=== PATIENT | female | born 1955 | race Caucasian/White ===

== ENCOUNTER 2019-10-11 11:26 | Outpatient (CLI) | payer MEDICARE, BC ==
[~2019-10-11] VITALS: Ht 154.9 cm; Wt 72.9 kg
--- NOTE | ~2019-10-11 | HEMODYNAMI ---
PATIENT:MARYANA NORTH MEDICAL RECORD: [id number] : 53 LOCATION:[facility] ADMISSION DATE: 10/11/19 Generatedon:10/11/201913:25 Patient name: MARYANA NORTH Patient #: [id number] SSN: : 1955 Date of study: 10/11/2019 Page: Of Hemodynamic Procedure Report Patient Data Patient Demographics Procedure consent was obtained First Name: MARYANA Gender: Female Last Name: MARY ANNE : 1955 Patient #: [id number] Age: 64 year(s) Race: Unknown Additional ID: [id number] Contact details [address]: [address] [place] [address] State: [place] City: [place] Zip code: [address] Past Medical History Allergies Allergen Reaction Date Comments Reported Other allergy 10/11/2019 PCN, SULFA Admission Admission Data Admission Date: 10/11/2019 Admission Time: 11:26 Arrival Date: 10/11/2019 Arrival Time: 0:00 Height (in.): 60.63 BSA: 1.71 (m2) Height (cm.): 154 BMI: 30.78 (kg/m2) Weight (lbs.): 160.94 Weight (kg.): 73 Lab Results Lab Result Date: 10/11/2019 Lab Result Time: 0:00 CBC Name Units Result Min Max Hemoglobin g/dl 14.4 --(*---)-- 13.5 17.5 Procedure Procedure Types Cath Procedure Diagnostic Procedure LHC LHC w/Coronaries FFR/IVUS FFR Initial Procedure Description Procedure Date Procedure Date: 10/11/2019 Procedure Start Time: 12:48 Procedure Staff Name Function Alonso Monaco RT Monitor Edson Phipps RN Nurse Kenroy Mathews MD Performing Physician Earnestine Ortiz RT Scrub Procedure Data Cath Procedure Fluoroscopy Diagnostic fluoroscopy Total fluoroscopy Time: 8.4 time: 8.4 min min Diagnostic fluoroscopy Total fluoroscopy dose: 832 dose: 832 mGy mGy Contrast Material Contrast Material Type Amount (ml) Isovue 300 61 Entry Location Entry Primary Successful Side Size Upsize Upsize Entry Closure Succes sful Closure Location (Fr) 1 (Fr) 2 (Fr) Remarks Device Remarks Radial Right 6 Fr artery Short Femoral Right 5 Fr 6 Fr Exoseal artery Short Estimated blood loss: 10 ml Diagnostic catheters Device Type Used For End Catheter Placement DIAGNOSTIC [place] 110cm 5 Procedure Fr catheter ([id number]) DIAGNOSTIC JL 3.5 5Fr Procedure catheter ([id number]) MULTIPACK JL 4.0 5Fr Procedure catheter Procedure Medications Medication Administration Route Dosage Oxygen etCO2 Nasal cannula 2 l/min Lidocaine 2% added to field 20 Heparin Flush Bag added to field 2 bags (1000units/500ml NS) 0.9% NaCl I.V. 100 ml/hr Radial Cocktail I.A. 1 syringe (Verapamil 2mg/Nitro 400mcg/Heparin 1500units) Versed I.V. 1 mg Fentanyl I.V. 50 mcg Versed I.V. 1 mg Fentanyl I.V. 50 mcg Heparin Bolus I.V. 2000 units Versed I.V. 1 mg Hemodynamics Rest BSA: 1.71 (m2) HGB: 14.4 (g/dl) O2 Consumption: Estimated: 156.66 (ml/min) O2 Co nsumption indexed: Estimated:91.61 (ml/min/m) Heart Rate: 65 (bpm) Snapshots Pre Cath Intra NCS Post Cath Vital Signs Time Heart Resp SPO2 etCO2 NIBP (mmHg) Rhythm Pain Sedation Rate (ipm) (%) (mmHg) Status Level (bpm) 12:43:21 54 13 100 41.9 164/76(123) NSR 0 (11) 10(A) , No pain 12:47:56 67 18 97 38.1 116/55(79) NSR 0 (11) 10(A) , No pain 13:01:49 68 13 98 41.2 141/68(89) NSR 0 (11) 9(A) , No pain 13:10:34 67 17 99 42.7 118/59(93) NSR 0 (11) 9(A) , No pain 13:15:31 64 18 99 37.4 123/63(80) NSR 0 (11) 10(A) , No pain Medications Time Medication Route Dose Verified Delivered Reason Not es Effectiveness by by 12:31:10 Oxygen etCO2 2 l/min Kenroy Sandhu used for Nasal St Parth Phipps RN procedure cannula 12:32:16 Lidocaine 2% added 20ml Kenroy Jasmine for local to vial [facility] anesthetic field MD BOATENG 12:32:21 Heparin Flush added 2 bags Kenroy Jasmine used for Bag to [facility] procedure (1000units/500ml field MD BOATENG NS) 12:32:30 0.9% NaCl I.V. 100 Kenroy Sandhu Per physician ml/hr St Parth Phipps RN, MD 12:45:44 Versed I.V. 1 mg Kenroy Sandhu for sedation St Parth Phipps RN, MD 12:45:51 Fentanyl I.V. 50 mcg Kenroy Sandhu for sedation St Parth Phipps RN, MD 12:50:37 Radial Cocktail I.A. 1 Kenroy Jasmine for (Verapamil syringe [facility] vasodilation 2mg/Nitro MD BOATENG 400mcg/Heparin 1500units) 12:53:53 Versed I.V. 1 mg Kenroy Sandhu for sedation St Parth Phipps RN, MD 12:53:56 Fentanyl I.V. 50 mcg Kenroy Sandhu for sedation St Parth Phipps RN, MD 13:01:37 Versed I.V. 1 mg Kenroy Sandhu for sedation St Parth Phipps RN, MD 13:05:34 Heparin Bolus I.V. 2000 Kenroy Sandhu for fabian ified units St Parth Phipps RN anticoagulation with dr MD mcclain Procedure Log Time Note 11:38:30 Informed consent obtained and on chart 12:15:24 Edson Phipps RN sent for patient. Start room use. 12:15:47 Procedure Status Elective Heart Cath (OP). 12:15:49 Time tracking: Regular hours (M-F 7:00 - 5:00) 12:15:54 Plan of Care:Hemodynamics will remain stable., Cardiac rhythm will remain stable., Comfort level will be maintained., Respiratory function will remain adequate., Patient/ family verbilizes understanding of procedure., Procedure tolerated without complication., Recovers from procedure without complications.. 12:16:10 H&P Date Dictated: 10/11/2019 New H&P dictated by physician.. 12:16:49 Patient allergic to Other allergyPCN, SULFA 12:19:43 Patient Weight : 160.94 lbs 12:19:50 Patient Height : 60.63 inches 12:20:07 Arrival Date: 10/11/2019 12:00:00 AM 12:22:55 Patient received from Pre/Post Procedure Room to [facility] 2 Alert and oriented. Tansferred to table in Supine position. 12:22:56 Warm blankets applied, and doris hugger turned on for patient comfort. 12:22:58 Correct patient and procedure confirmed by team. 12:23:01 ECG and BP/O2 sat monitors applied to patient. 12:24:42 Is patient on blood thinner?No 12:28:00 Patient diabetic? Yes. 12:28:05 ----Pre-sedation anethsthesia assessment.---- 12:28:08 Previous problem with sedation/anesthesia? No ? 12:28:09 Snore? Yes 12:28:11 Sleep apnea? No 12:28:13 Deviated septum? No 12:28:14 Opens mouth fully? Yes 12:28:15 Sticks out tongue? Yes 12:28:19 Airway obstruction? No ? 12:28:22 Dentures? No ? 12:31:10 Oxygen 2 l/min etCO2 Nasal cannula was administered by Edson Phipps RN; used for procedure; Verbal order read back and verified. 12:32:09 Pre procedure: right dorsailis pedis pulse 2+ Normal; easily identifiable; not easily obliterated 12:32:13 Modified Rubio's test Ulnar < 7 seconds 12:32:16 Lidocaine 2% 20ml vial added to field was administered by Kenroy Mathews MD; for local anesthetic; Verbal order read back and verified. 12:32:16 Patient pain scale 0/10 ?. 12:32:21 Heparin Flush Bag (1000units/500ml NS) 2 bags added to field was administered by Kenroy Mathews MD; used for procedure; Verbal order read back and verified. 12:32:24 IV patent on arrival in left antecubital with 0.9% NaCl at [facility]. 12:32:30 0.9% NaCl 100 ml/hr I.V. was administered by Edson Phipps RN; Per physician; Verbal order read back and verified. 12:32:44 Right Radial & Right Groin area was prepped with chlora-prep and draped in sterile fashion 12:32:46 Alarms reviewed by R. N. 12:32:47 Sharps counted by scrub and verified by R.N. 12:32:53 Use device set Radial Dx or PCI 12:32:55 ACIST Syringe (34998) opened to sterile field. 12:32:56 Medline Cath Pack ([id number]) opened to sterile field. 12:32:57 Bag Decanter (2002S) opened to sterile field. 12:32:58 ACIST Hand Control (90232) opened to sterile field. 12:32:59 ACIST Manifold (96893) opened to sterile field. 12:33:00 Tegaderm 4 x 4 (1626W) opened to sterile field. 12:33:01 MBrace Wrist Support (086982267) opened to sterile field. 12:33:13 SHEATH 6FR RAIN (0626249) opened to sterile field. 12:35:56 Baseline sample Acquired. 12:36:07 Rhythm: sinus rhythm 12:36:15 Pre-procedure instructions explained to patient. 12:36:22 Pre-op teaching completed and patient verbalized understanding. 12:36:27 Family in patients room. 12:36:34 Is the patient allergic to Iodine/contrast media? No. 12:39:04 Lab Result : Hemoglobin 14.4 g/dl 12:39:41 Lab results completed and on chart. 12:43:01 Physician arrived 12:43:02 --------ALL STOP TIME OUT------ 12:43:03 Final Timeout: patient, procedure, and site verified with staff and physician. All members of the team are in agreement. 12:43:06 Right Radial & Right Groin site verified by team. 12:43:11 Fire Safety Assessment: A--An alcohol-based skin anteseptic being used preoperatively., C--Open oxygen or nitrous oxide is being used., D--An ESU, laser, or fiber-optic light is being used. 12:43:16 Physical assessment completed. ASA score P 2 - A patient with mild systemic disease as per Kenroy Mathews MD. 12:43:23 Sedation plan: IV Moderate Sedation Medication:Versed, Fentanyl 12:45:44 Versed 1 mg I.V. was administered by Edson Phipps RN; for sedation; Verbal order read back and verified. 12:45:51 Fentanyl 50 mcg I.V. was administered by Buffie Phipps RN; for sedation; Verbal order read back and verified. 12:47:47 Procedure started, trouble with the [place] 12:48:25 Local anesthetic to right radial artery with Lidocaine 2% by Kenroy Mathews MD.INITIAL ACCESS ONLY 12:48:40 A 6 Fr Short sheath was inserted into the Right Radial artery 12:49:47 A DIAGNOSTIC [place] 110cm 5 Fr catheter ([id number]) was advanced over the wire and used for Procedure. 12:50:37 Radial Cocktail (Verapamil 2mg/Nitro 400mcg/Heparin 1500units) 1 syringe I.A. was administered by Kenroy Mathews MD; for vasodilation; Verbal order read back and verified. 12:51:05 LV gram done using CHAMBERS 12:51:11 LV hemodynamics recorded. 12:51:16 EF : 55 % 12:51:22 RCA angiography performed. 12:52:59 1152 HR 68, 118/62, 96%, etCO 15, RR 16, arousal with verbal , NSR 12:53:20 Catheter removed. 12:53:29 A DIAGNOSTIC JL 3.5 5Fr catheter ([id number]) was advanced over the wire and used for Procedure. 12:53:53 Versed 1 mg I.V. was administered by Edson Phipps RN; for sedation; Verbal order read back and verified. 12:53:56 Fentanyl 50 mcg I.V. was administered by Edson Phipps RN; for sedation; Verbal order read back and verified. 12:55:01 Catheter removed. 12:55:25 GUIDE 6FR XBLAD 3.5 catheter ([id number]) opened to sterile field. 12:57:43 1257 HR 67, 125/75, 98%, RR16, etCO2 21, arousal with verbal , NSR 12:59:15 Catheter removed. 12:59:47 Unable to access LCA, preparing groin 12:59:51 Use device set Femoral Dx 13:00:01 SHEATH 5FR [place] (AQV683) opened to sterile field. 13:00:47 Local anesthetic to right femoral artery with Lidocaine 2% by Kenroy Mathews MD.ADDITIONAL ACCESS 13:01:01 A 5 Fr sheath was inserted into the Right Femoral artery 13:01:12 DIAGNOSTIC Multipack 5Fr catheter set (IU3941) opened to sterile field. 13:01:24 A MULTIPACK JL 4.0 5Fr catheter was advanced over the wire and used for Procedure. 13:01:37 Versed 1 mg I.V. was administered by Edson Phipps RN; for sedation; Verbal order read back and verified. 13:02:09 LCA angiography performed. 13:04:17 SHEATH 6FR Bay[place] (RLQ755) opened to sterile field. 13:04:36 Sheath upsized to a 6 Fr Short. 13:05:04 [place] Verrata Plus pressure wire (00147T) opened to sterile field. 13:05:27 INFLATOR Merit BasixCompak (BK6888) opened to sterile field. 13:05:28 EMERALD Guide Wire (737-068) opened to sterile field. 13:05:34 Heparin Bolus 2000 units I.V. was administered by Edson Phipps RN; for anticoagulation; verified with dr mcclain Verbal order read back and verified. 13:05:37 1305- HR 67, 112/60, RR14, etCO2 41, NSR, arousal on verbal. 13:06:35 [place]iggott wire advanced. 13:10:21 Wire advanced across lesion. 13:10:32 FFR/IFR wire advanced. 13:10:55 dCirc lesion measured at .96 with IFR 13:12:40 EXOSEAL 6Fr (EX600) opened to sterile field. 13:13:11 Sheath removed intact; hemostasis achieved with Exoseal to the Right Femoral artery. 13:13:58 ZEPHYR REGULAR TR BAND (364293) opened to sterile field. 13:15:14 Procedure ended.(Physican Out) 13:15:33 Fluoroscopy time 08.40 minutes. 13:15:42 Fluoroscopy dose: 832 mGy 13:15:42 Flurop Dose total: 832 13:15:48 Dose Area Product 77.8 mGy/cm. 13:15:59 Contrast amount:Isovue 300 61ml. 13:16:06 Sharps counted by scrub and verified by R.N. 13:16:28 ACT drawn and resulted at 195 seconds. (normal therapeutic range 180-240 seconds). 13:16:43 Insertion/operative site no bleeding no hematoma. 13:16:49 Post-op/insertion site Right Femoral artery dressed using a 4 x 4 and Tegaderm. 13:16:55 Post right femoral artery:stable 13:17:59 [place] band inflated with 12cc of air. 13:18:16 Post Procedure Pulses reassessed and unchanged 13:18:30 Post-procedure physical assessment completed. ASA score P 2 - A patient with mild systemic disease as per Kenroy Mathews MD. 13:18:37 Post procedure rhythm: sinus rhythm 13:18:42 Estimated blood loss: 10 ml 13:18:45 Patient needs reinforcement of post procedure teaching. 13:19:53 Procedure type changed to Cath procedure, Diagnostic procedure, LHC, LHC w/Coronaries, FFR/IVUS, FFR Initial 13:20:42 Procedure and supply charges have been captured, reviewed, submitted and are correct. 13:20:52 LHC Findings: mild to moderate CAD (<70%) 13:20:58 Operative report dictated upon procedure completion. 13:21:04 See physician's report for complete and final results. 13:22:04 Report given to Pre/Post Procedure Room. 13:22:08 Patient transfered to Pre/Post Procedure Room with Stretcher. 13:22:26 End room use (Document Last) Device Usage Item Name Manufacture Quantity Catalog Hospital Part Current Mini mal Lot# / Number Charge Number Stock Stock Serial# Code ACIST Acist 1 38640 173170 625589 684939 20 Syringe Medical (65894) Systems Inc Medline Medline 1 [id number] 839568 70658 481035 5 Cath Pack ([id number]) Bag Microtek 1 2001S 136181 77927 933134 5 Decanter Medical Inc. () ACIST Hand Acist 1 48002 092442 644772 114285 5 Control Medical (34080) Systems Inc ACIST Acist 1 00928 365069 368325 748275 5 Manifold Medical (29954) Systems Inc Tegaderm 4 3M 1 1626W 364843 658652 449203 5 x 4 (1626W) MBrace Advanced 1 140-0250-00 307645 83156 891332 5 Wrist Vascular Support Dynamics (099173901) SHEATH 6FR Cardinal 1 8733916 377927 4605826 788116 5 [facility] (8070790) DIAGNOSTIC Terumo 1 40-2431 882134 966554 119546 5 [place] 110cm 5 Fr catheter (923325) DIAGNOSTIC Cardinal 1 982765N 387245 300606 528590 5 JL 3.5 5Fr Health catheter (603161D) GUIDE 6FR Cardinal 1 [id number] 258064 183219 189944 10 XBLAD 3.5 Health catheter (29374540) SHEATH 5FR Terumo 1 KPF269 261942 912383 820177 5 Bayard (DZN323) DIAGNOSTIC Cardinal 1 DW3919 478671 39646 780656 30 Multipack Health 5Fr catheter set (OP8328) MULTIPACK Cardinal 1 544591 5 JL 4.0 5Fr Health catheter SHEATH 6FR Terumo 1 QEP951 804892 239099 618577 40 Bayard (EOO455) Piggott Piggott 1 79699N 617372 730128462 937683 5 Verrata Plus pressure wire (72417Z) INFLATOR Merit 1 OD7878 408121 945543 561029 15 [facility] Medical BasixCompak (QM2164) EMERALD Cardinal 1 502-455 129433 650263 573386 5 Guide Wire Health (502455) EXOSEAL 6Fr Cardinal 1 EX600 441361 705374 742008 10 (EX600) Health ZEPHYR Cardinal 1 255545 522903 5453322 156320 5 REGULAR TR Health BAND (712059) Signature Audit [place] Stage Time Signature Unsigned Intra-Procedure 10/11/2019 Alonso Monaco RT(R) 12:44:59 PM RT(R) (CV) (CV) 10/11/2019 12:46:14 PM Intra-Procedure 10/11/2019 Alonso Monaco 1:23:48 PM RT(R) (CV) Intra-Procedure 10/11/2019 Edson Phipps RN 1:24:23 PM Intra-Procedure 10/11/2019 Kenroy Luu 1:25:00 PM Parth BOATENG Signatures Monitor : Alonso Monaco RT Signature : Date : Time : Nurse : Edson Phipps RN Signature : Date : Time : Performing Physician : Signature : Kenroy Mathews MD Date : Time : [address] [place] [address]
[2019-10-11] MEDS ORDERED: PAROXETINE HCL10 MG PO (11:48)
[2019-10-11] MEDS ORDERED: LISINOPRIL20 MG PO (11:48)
[2019-10-11] MEDS ORDERED: ZOCOR10 MG PO (11:48)
[2019-10-11] MEDS ORDERED: GLUCOPHAGE500 MG PO (11:48)
[2019-10-11] MEDS ORDERED: OMEPRAZOLE20 M1 PO (11:55)
[2019-10-11 12:05] VITALS: BP 159/82; Ht 154.9 cm; Wt 72.9 kg
[2019-10-11 12:23] LABS: BASOPHILS 0.1 % (0-2); EOSINOPHILS 2.1 % (0-7); HEMATOCRIT 42.6 % (36.0-48.0); HEMOGLOBIN 14.4 g/dL (12-16); IMMATURE GRANULOCYTES 0.1 % (0-5); LYMPHOCYTES 37.2 % (15-50); MCH 31.9 pg (26.0-34.0); MCHC 33.8 g/dL (31.0-37.0); MCV 94.5 fL (80.0-100.0); MONOCYTES 3.9 % (2-11); NEUTROPHILS 56.6 % (40-80); PLATELET COUNT 207 10x3/uL (130-400); RBC 4.51 10x6/uL (4.00-5.40); RDW 12.8 % (11.5-14.5); WBC 6.7 10x3/uL (4.8-10.8)
[2019-10-11 12:41] LABS: ANION GAP 10.8 mmol/L (8-16); CALCIUM 8.9 mg/dL (8.5-10.1); CARBON DIOXIDE 29.3 mmol/L (21.0-32.0); CREATININE - SERUM 1.1 mg/dL (0.6-1.3); LDL-HDL RATIO 2.8 ratio (1.5-3.5); POTASSIUM - SERUM 4.1 mmol/L (3.5-5.1)
--- NOTE | 2019-10-11 13:25 | NUR ---
PT RECEIVED VIA STRETCHER FROM SHEARER SCREEN MEASURER AND TRIMMER FOR RECOVERY. PT DROWSY BUT VERBALLY AROUSABLE. PT DENIES PAIN OR DISCOMFORT. IV PATENT INFUSING VIA ORDERS TO L ARM. PT PLACED ON CARDIAC MONITORS AND O2 VIA NC AT 2L. HR NSR RATE 62, BP 123/66, RR 11, SAT 98. ZYPHER BAND AND IMMOBILIZER TO R ARM/WRIST, DRESSING W SMALL AMT OF BLOOD, NO ACTIVE BLEEDING NOTED. NO S/S HEMATOMA. ARM PINK AND WARM. R GROIN W 6FR EXOCELE, DRESSING CDI NO S/S HEMATOMA. LEG PINK AND WARM, PEDAL PULSES PALPABLE. PT INSTRUCTED TO KEEP HEAD ON PILLOW AND LEG STRAIGHT SHE VERBALIZED UNDERSTANDING. CALL LIGHT IN REACH, AT BS
--- NOTE | 2019-10-11 13:45 | NUR ---
PT RESTING W EYES CLOSED. ZBAND AND IMMOBILIZER IN PLACE, NO BLEEDING OR S/S HEMATOMA. R GROIN SOFT, DRESSING REMAINS CDI NO S/S HEMATOMA NOTED. VSS. CALL LIGHT IN REACH
--- NOTE | 2019-10-11 14:20 | NUR ---
4CC AIR REMOVED FROM Z BAND, NO BLEEDING OR S/S HEMATOMA NOTED. R GROIN SOFT, DRESSING REMAINS CDI NO S/S HEMATOMA. HOB ELEVATED SLIGHTLY, SANDWICH AND DRINK SERVED. VSS. CALL LIGHT IN REACH
--- NOTE | 2019-10-11 14:50 | NUR ---
PT C/O HEADACHE, DR FLETCHER NOTIFIED, ORDERS RECEIVED. 3 ADD'L CC AIR REMOVED FROM Z BAND, NO BLEEDING NOTED. R GROIN SOFT, DRESSING CDI NO S/S HEMATOMA. CALL LIGHT IN REACH, REMAINS AT BEDSIDE. VSS.
--- NOTE | 2019-10-11 14:57 | NUR ---
600MG IBUPROFEN GIVEN PER VERBAL ORDER. PT STATES PAIN 5/10.
--- NOTE | 2019-10-11 15:11 | NUR ---
DISCHARGE INSTRUCTIONS REVIEWED W PT AND , BOTH VERBALIZED UNDERSTANDING. IV REMOVED W CATH INTACT, MONITORS REMOVED. ZBAND AND IMMOBILIZER IN PLACE, NO S/S HEMATOMA. R GROIN REMAINS SOFT, NO BLEEDING OR S/S HEMATOMA. PT UP TO DRESS FOR DISCHARGE.
--- NOTE | 2019-10-11 15:20 | NUR ---
ZBAND REMOVED AND REMAINING AIR, NO BLEEDING NOTED. 2X2 AND SM TEGADERM DRESSING APPLIED.
--- NOTE | 2019-10-11 15:30 | NUR ---
PT DISCHARGED VIA WC TO WAITING IN PRIVATE VEHICLE. PT HAD ALL BELONGINGS AND DISCHARGE PAPERWORK
--- NOTE | 2019-10-12 08:26 | HP ---
PATIENT: MARYANA NORTH MEDICAL RECORD: [id number] ACCOUNT: [id number] LOCATION:[facility] : 53 ADMISSION DATE: 10/11/19 PCP: RYAN GARZA HISTORY AND PHYSICAL EXAMINATION UPDATED H&P HISTORY OF PRESENT ILLNESS: A 64-year-old female with a history of diabetes mellitus, hypertension, who presented to the office with angina, underwent Cardiolite stress testing in [facility] with positive reversibility. Given her symptomatology, she is being brought forth for diagnostic angiography. PAST MEDICAL HISTORY: Includes: 1. History of hypertension. 2. Hyperlipidemia. 3. Diabetes mellitus. MEDICATIONS: Aspirin 81 every day, lisinopril 20 b.i.d., metformin 1 gram b.i.d., simvastatin 20 every day. PHYSICAL EXAMINATION: GENERAL: Pleasant female, in no acute distress, appears stated age. HEENT: Normocephalic, atraumatic. NECK: No JVD or bruit. HEART: Regular. LUNGS: Ortiz clear. EXTREMITIES: Pulse 2+. No edema. NEUROLOGIC: Grossly intact. IMPRESSION: Angina with positive noninvasive studies, angiography, intervention based on the above. TRANSINT:[id number] Voice Confirmation ID: [id number] DOCUMENT ID: [id number] ELIAZBETH FLETCHER MD at 0826 CC: [id number] DICTATION DATE: 10/11/19 1228 FIELD ASSOCIATE: 10/11/19 1309 DEP CLI 10/11/19 [place] [address]
--- NOTE | 2019-10-12 08:26 | OP ---
PATIENT NAME: MARYANA NORTH MEDICAL RECORD: [id number] :53 LOCATION:D.CAT ADMISSION DATE: SURGEON: ELIZABETH FLETCHER MD DATE OF OPERATION: 10/11/2019 PROCEDURE: Left heart catheterization, selective coronary angiography, plus IFR of the circumflex, right femoral artery approach. CATHETERS: A 5-Divehi sheath, 5/4 left and right Nita, 5/4 pig. The procedure was well tolerated. The patient returned to the hutch[place], sheath removed. ExoSeal device placed. FINDINGS: Left ventriculography in 30-degree CHAMBERS view: Normal wall motion and normal systolic function. CORONARY ANATOMY: LEFT MAIN: Left main is free of disease. LAD: Free of disease in the diagonal system. CIRCUMFLEX: She had a questionable stenosis; however, IFR up to this area was normal at 0.96. RIGHT CORONARY ARTERY: Right coronary artery is totally occluded proximally. This is a left dominant system with small right; however, it fills well via left to right collaterals and LV function remains normal. IMPRESSION: Single-vessel disease, medical management, risk factor modification recommended. TRANSINT:[id number] Voice Confirmation ID: [id number] DOCUMENT ID: [id number] ELIZABETH FLETCHER MD at 0826 CC: [id number] DICTATION DATE: 10/11/19 1315 [place] ADJUSTER: 10/11/19 1736 DEP CLI 10/11/19 [place] [id number] [place] [id number]
== END 2019-10-11 15:30 | disposition home or self-care (01) ==
LOC: D.CATH 11:26
PROVIDERS: ATTEND Internal Medicine Interventional Cardiology
DX: I25.10 Atherosclerotic heart disease of native coronary artery without angina pectoris (principal); E11.9 Type 2 diabetes mellitus without complications; I10 Essential (primary) hypertension; E78.5 Hyperlipidemia, unspecified; Z79.84 Long term (current) use of oral hypoglycemic drugs